=== PATIENT | female | born 1975 | race Caucasian/White ===

== ENCOUNTER 2017-08-09 13:26 | Emergency (ER) | payer OTHER ==
[~2017-08-09] VITALS: Ht 170.1 cm; Wt 117.9 kg
[~2017-08-09 13:26] MED LIST: ALBUTEROL0.09 MG/A2 INH; CLARITIN10 MG PO; DEPO PROVER150 MG/M1 IM; DUONEB 3 MG/3 ML3 M1 INH; FLEXERIL10 MG PO; HYDROCODONE BIT1 T11 PO; MEDROL DOSEPAK4 MG PO; MIRENA52 MG V; MOTRIN800 MG PO; Motrin,Rufen800 MG PO; NAPROSYN500 MG PO; NKHM; PREDNICOT20 MG PO; PREDNISONE20 MG PO; TESSALON PERLE200 MG PO; ULTRAM50 MG PO; ZITHROMAX Z PA250 MG PO; ZYRTEC10 M1 PO
[2017-08-09] MEDS ORDERED: MIRENA1 EACH V (13:40)
[2017-08-09] MEDS ORDERED: MEDROL DOSEPAK4 MG PO (14:16)
== END 2017-08-09 14:25 | disposition home or self-care (01) ==
LOC: ED 13:26
DX: M54.16 Radiculopathy, lumbar region (principal); Z88.1 Allergy status to other antibiotic agents

== ENCOUNTER → 2020-12-22 | Outpatient (CLI) | payer OTHER ==
[~2020-12-22] MED LIST changes: +MIRENA1 EACH V
== END | disposition home or self-care (01) ==
LOC: MAMMO 12-10 11:00
PROVIDERS: ATTEND Nurse Practitioner Family
DX: Z12.31 Encounter for screening mammogram for malignant neoplasm of breast (principal)

== ENCOUNTER → 2020-12-30 | Outpatient (CLI) | payer OTHER ==
[2020-12-31 09:10] LABS: HEP B CORE AB, IGM Negative (Negative); HEPATITIS B SURFACE AG Negative (Negative); HEPATITIS C VIRUS ANTIBODY <0.1 s/co (0.0-0.9)
== END | disposition home or self-care (01) ==
LOC: LAB 14:32
PROVIDERS: ATTEND Nurse Practitioner Family
DX: R79.89 Other specified abnormal findings of blood chemistry (principal)

== ENCOUNTER → 2020-12-31 | Outpatient (CLI) | payer OTHER | END | disposition home or self-care (01) | LOC: MAMMO 08:00 | PROVIDERS: ATTEND Nurse Practitioner Family | DX: R92.8 Other abnormal and inconclusive findings on diagnostic imaging of breast (principal) ==

== ENCOUNTER → 2021-01-18 | Outpatient (CLI) | payer OTHER | END | disposition home or self-care (01) | LOC: US 00:53 | PROVIDERS: ATTEND Nurse Practitioner Family | DX: K82.8 Other specified diseases of gallbladder (principal); R79.89 Other specified abnormal findings of blood chemistry ==

== ENCOUNTER → 2021-02-05 | Outpatient (CLI) | payer OTHER | END | disposition home or self-care (01) | LOC: COVID19 13:44 | PROVIDERS: ATTEND Nurse Practitioner Family | DX: U07.1 COVID-19 (principal) ==

== ENCOUNTER 2021-08-08 11:15 | Emergency (ER) | payer OTHER ==
[~2021-08-08] VITALS: Ht 170.1 cm; Wt 109.3 kg
[2021-08-08] MEDS ORDERED: ALBUTEROL2.5 MG/0.5 INH (15:23)
[2021-08-08] MEDS ORDERED: PREDNISONE20 M1 PO (15:24)
[2021-08-08] MEDS ORDERED: PROVENTIL HFA6.7 GM INH (15:24)
== END 2021-08-08 15:25 | disposition home or self-care (01) ==
LOC: ED 11:15
DX: B34.9 Viral infection, unspecified (principal); Z20.822 Contact with and (suspected) exposure to COVID-19; R51.9 Headache, unspecified; Z88.1 Allergy status to other antibiotic agents; Z79.899 Other long term (current) drug therapy